=== PATIENT | female | born 1995 | race Hispanic/Latino ===

== ENCOUNTER 2018-02-04 21:57 | Emergency (ER) | payer SELFPAY ==
[2018-02-04] MEDS ORDERED: ACETAMINOPHEN 500 MG TAB ONE (22:45)
[2018-02-04 22:53] LABS: Urine Blood NEGATIVE (NEG); Urine Glucose NEGATIVE (NEG); Urine Protein NEGATIVE (NEG); Urine Specific Gravity 1.025 (1.005-1.030)
--- NOTE | 2018-02-05 00:21 | EDPHYS ---
Physician Documentation [facility] Name: Mireille Mills Age: 22 yrs Sex: Female : 1995 Arrival Date: 02/04/2018 Time: 22:02 Bed 18 Private MD: ED Physician Vernon Morris HPI: 02/04 22:38 This 22 yrs old Female presents to ER via Ambulatory with complaints of Flu jr8 Symptoms, Fever. 22:38 Patient presents with flu like symptoms and pain to right lateral chest wall. Denies jr8 trauma. Has been treating herself with over the counter medicines thus far. Symptoms started last night . Severity of symptoms: At their worst the symptoms were moderate in the emergency department the symptoms are unchanged. The patient has not experienced similar symptoms in the past. The patient has not recently seen a physician. 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 - Social history:: Smoking status: Patient/guardian denies using tobacco. - Ebola Screening: : No symptoms or risks identified at this time. ROS: 22:38 Eyes: Negative for injury, pain, redness, and discharge, Neck: Negative for injury, jr8 pain, and swelling, Abdomen/GI: Negative for abdominal pain, nausea, vomiting, diarrhea, and constipation, Back: Negative for injury and pain, MS/Extremity: Negative for injury and deformity, Skin: Negative for injury, rash, and discoloration. 22:38 Constitutional: Positive for body aches, chills, fever. 22:38 ENT: Positive for rhinorrhea, sinus congestion, sore throat. 22:38 Cardiovascular: Positive for chest pain, with cough, with movement, of the right lateral anterior chest. 22:38 Respiratory: Positive for cough, Negative for dyspnea on exertion, pleurisy, shortness of breath, sputum production, wheezing. 22:38 Neuro: Positive for headache. Exam: 22:38 Constitutional: This is a well developed, well nourished patient who is awake, alert, jr8 and in no acute distress. Head/Face: Normocephalic, atraumatic. Eyes: Pupils equal round and reactive to light, extra-ocular motions intact. Lids and lashes normal. Conjunctiva and sclera are non-icteric and not injected. Cornea within normal limits. Periorbital areas with no swelling, redness, or edema. ENT: Nares patent. No nasal discharge, no septal abnormalities noted. Tympanic membranes are normal and external auditory canals are clear. Oropharynx with no redness, swelling, or masses, exudates, or evidence of obstruction, uvula midline. Mucous membranes moist. Neck: Trachea midline, no thyromegaly or masses palpated, and no cervical lymphadenopathy. Supple, full range of motion without nuchal rigidity, or vertebral point tenderness. No Meningismus. Cardiovascular: Regular rate and rhythm with a normal S1 and S2. No gallops, murmurs, or rubs. Normal PMI, no JVD. No pulse deficits. Respiratory: Lungs have equal breath sounds bilaterally, clear to auscultation and percussion. No rales, rhonchi or wheezes noted. No increased work of breathing, no retractions or nasal flaring. Abdomen/GI: Soft, non-tender, with normal bowel sounds. No distension or tympany. No guarding or rebound. No evidence of tenderness throughout. Back: No spinal tenderness. No costovertebral tenderness. Full range of motion. Skin: Warm, dry with normal turgor. Normal color with no rashes, no lesions, and no evidence of cellulitis. MS/ Extremity: Pulses equal, no cyanosis. Neurovascular intact. Full, normal range of motion. Neuro: Awake and alert, GCS 15, oriented to person, place, time, and situation. Cranial nerves II-XII grossly intact. Motor strength 5/5 in all extremities. Sensory grossly intact. Cerebellar exam normal. Normal gait. 22:38 Chest/axilla: Inspection: normal, Palpation: tenderness, that is moderate, of the right lateral anterior chest, that totally reproduces the patient's complaints, Axilla: are normal. Vital Signs: 22:22 BP 110 / 71; Pulse 94; Resp 16; Temp 100.4(O); Pulse Ox 98% on R/A; Weight 65.77 kg; lp1 02/05 00:30 BP 105 / 61; Pulse 86; Temp 98.6(O); Pulse Ox 98% on R/A; jb4 MDM: 02/04 22:07 Patient medically screened. [facility] 02/05 00:19 Data reviewed: vital signs, nurses notes, lab test result(s), radiologic studies, plain jr films, and as a result, I will discharge patient. Data interpreted: Pulse oximetry: on room air is 98 %. Interpretation: normal. Counseling: I had a detailed discussion with the patient and/or guardian regarding: the historical points, exam findings, and any diagnostic results supporting the discharge/admit diagnosis, lab results, radiology results, the need for outpatient follow up, a family practitioner, to return to the emergency department if symptoms worsen or persist or if there are any questions or concerns that arise at home. 02/04 22:30 Order name: Influenza Screen (a \T\ B) [facility] 02/04 22:30 Order name: Strep [facility] 02/04 22:31 Order name: Influenza Screen (A ; Complete Time: 23:09 EDLA 02/04 22:31 Order name: Group A Streptococcus Rapid Sc; Complete Time: 23:09 EDLA 02/04 22:48 Order name: Urine Dipstick--Ancillary (enter results); Complete Time: 22:57 ms 02/04 22:49 Order name: Urine --Ancillary (enter results); Complete Time: 22:57 ms 02/04 22:30 Order name: XRAY Chest Pa And Lat (2 Views) [facility] 02/04 22:30 Order name: Urine Test (obtain specimen); Complete Time: 22:48 [facility] 02/04 22:30 Order name: Urine Dipstick-Ancillary (obtain specimen); Complete Time: 22:48 [facility] 02/04 23:06 Order name: Throat Culture EDMS Administered Medications: 02/04 22:35 Drug: Tylenol 1000 mg Route: PO; jb4 02/05 00:40 Follow up: Response: No adverse reaction jb4 Disposition: 00:50 Co-signature as Attending Physician, Vernon Morris MD. pkl Disposition: 02/05/18 00:20 Discharged to Home. Impression: Viral infection, unspecified, Other chest pain - Lateral chest wall pain. - Condition is Stable. - Discharge Instructions: Chest Wall Pain, Viral Respiratory Infection. - Prescriptions for ketorolac 10 mg Oral tablet - take 1 tablet by ORAL route every 6 hours not to exceed 40 mg in 24hrs; 16 tablet. - Medication Reconciliation Form, Thank You Letter, Antibiotic Education, Prescription Opioid Use form. - Follow up: Private Physician; When: 2 - 3 days; Reason: Recheck today's complaints, Continuance of care, Re-evaluation by your physician. - Problem is new. - Symptoms have improved. Signatures: Dispatcher [employer] EDMS Vernon Morris MD MD pkl Katy Chung RN RN lp1 Rambo Harp PA PA jr8 Leo Elizabeth, RN RN jb4 Corrections: (The following items were deleted from the chart) 00:40 00:20 02/05/2018 00:20 Discharged to Home. Impression: Viral infection, unspecified; jb4 Other chest pain - Lateral chest wall pain. Condition is Stable. Forms are Medication Reconciliation Form, Thank You Letter, Antibiotic Education, Prescription Opioid Use. Follow up: Private Physician; When: 2 - 3 days; Reason: Recheck today's complaints, Continuance of care, Re-evaluation by your physician. Problem is new. Symptoms have improved. jr8
--- NOTE | 2018-02-05 00:21 | ER ---
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 Transition of care: patient was not received from another setting of care. Onset of symptoms was February 04, 2018. Risk Assessment: Do you want to hurt yourself or someone else? Patient reports no desire to harm self or others. Initial Sepsis Screen: Does the patient meet any 2 criteria? No. Patient's initial sepsis screen is negative. Does the patient have a suspected source of infection? No. Patient's initial sepsis screen is negative. Care prior to arrival: None. 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 - Social history:: Smoking status: Patient/guardian denies using tobacco. - Ebola Screening: : No symptoms or risks identified at this time. Screenin:25 Abuse screen: Denies threats or abuse. Denies injuries from another. Nutritional lp1 screening: No deficits noted. Tuberculosis screening: No symptoms or risk factors identified. Fall Risk None identified. Assessment: 22:24 General: Appears in no apparent distress. Behavior is appropriate for age, Reports lp1 fever for feeling ill for. Pain: Complains of pain in right lateral posterior chest and right lateral anterior chest Pain currently is 6 out of 10 on a pain scale. Quality of pain is described as sharp. Neuro: Level of Consciousness is awake, alert, obeys commands. Cardiovascular: Patient's skin is warm and dry. Respiratory: Reports cough that is Respiratory effort is even, unlabored. GI: No signs and/or symptoms were reported involving the gastrointestinal system. : No signs and/or symptoms were reported regarding the genitourinary system. EENT: No signs and/or symptoms were reported regarding the EENT system. Derm: Skin is pink, warm \T\ dry. Musculoskeletal: No signs and/or symptoms reported regarding the musculoskeletal system. 02/05 00:00 Reassessment: Patient appears in no apparent distress at this time. Patient and/or jb4 family updated on plan of care and expected duration. Pain level reassessed. Patient is alert, oriented x 3, equal unlabored respirations, skin warm/dry/pink. Patient states feeling better. Vital Signs: 02/04 22:22 BP 110 / 71; Pulse 94; Resp 16; Temp 100.4(O); Pulse Ox 98% on R/A; Weight 65.77 kg; lp1 02/05 00:30 BP 105 / 61; Pulse 86; Temp 98.6(O); Pulse Ox 98% on R/A; jb4 ED Course: 02/04 22:02 Patient arrived in ED. es 22:07 Rambo Harp PA is PHCP. jr8 22:07 Vernon Morris MD is Attending Physician. jr8 22:20 Katy Chung, DIETER is Primary Nurse. lp1 22:21 Triage completed. lp1 22:22 Arm band placed on left wrist. lp1 22:25 Patient has correct armband on for positive identification. lp1 22:35 Flu and/or RSV swab sent to lab. Strep swab sent to lab. lp1 22:43 XRAY Chest Pa And Lat (2 Views) In Process Unspecified. EDMS 12 00:39 No provider procedures requiring assistance completed. Patient did not have IV access jb4 during this emergency room visit. Administered Medications: 02/04 22:35 Drug: Tylenol 1000 mg Route: PO; jb4 02/05 00:40 Follow up: Response: No adverse reaction jb4 Outcome: 00:20 Discharge ordered by . jr8 00:39 Discharged to home ambulatory, with family. jb4 00:39 Condition: stable 00:39 Discharge instructions given to patient, family, Instructed on discharge instructions, follow up and referral plans. medication usage, Demonstrated understanding of instructions, follow-up care, medications, Prescriptions given X 1. 00:40 Patient left the ED. jb4 Signatures: Dispatcher [employer] Susan Pinto Laura, RN RN lp1 Rambo Harp PA PA jr8 Leo Elizabeth RN RN jb4 Corrections: (The following items were deleted from the chart) 02/04 22:23 22:21 Presenting complaint: Patient states: Cough, congestion, fever, right sided rib lp1 pain that began 2 days ago; States feeling general body aches, pressure behind eyes; Denies any nausea, vomiting, diarrhea lp1 02/05 00:37 00:00 BP 105 / 61; Pulse 86bpm; Pulse Ox 98% RA; Temp 98.6F Oral; jb4 jb4
[2018-02-05 01:19] VITALS: O2SAT 98
[2018-02-05 01:20] VITALS: BP 105/61; TEMP 98.6
--- NOTE | 2018-02-05 11:32 | RAD REPORT ---
EXAM DESCRIPTION: RAD - Chest Pa And Lat (2 Views) - 02/04/2018 10:45 pm CLINICAL HISTORY: Chest pain;Fever Chest pain. COMPARISON: No comparisons FINDINGS: The lungs are clear. The heart is normal in size. No displaced fractures. IMPRESSION: No acute or concerning finding suspected.
== END 2018-02-05 00:40 | disposition home or self-care (01) ==
LOC: ER 21:57
DX: B34.9 Viral infection, unspecified (principal); R07.89 Other chest pain
CPT/HCPCS: 71046; 81003; 81025; 87070; 87081; 87804; 99284

== ENCOUNTER 2020-01-06 01:46 | Inpatient (IN) | payer SELFPAY ==
[2020-01-06] MEDS ORDERED: PIPER/TAZO/NS 3.375gm 3.375 GM/100 ML BAG IVPB ONE (02:28)
[2020-01-06 02:30] VITALS: BMI 28.5
[2020-01-06] MEDS ORDERED: NA CHLORIDE 0.9% 1,000 ML IV SCH ×2 (03:00→09:00)
[2020-01-06] MEDS ORDERED: PIPER/TAZO/NS 3.375gm 3.375 GM/100 ML BAG ONE (03:42)
[2020-01-06] MEDS ORDERED: PIPER/TAZO/NS 3.375gm 3.375 GM/100 ML BAG IVPB SCH ×2 (06:00→09:00)
--- NOTE | 2020-01-06 11:15 | HP ---
Date of Admission: 01/06/2020 Reason For Service: Acute appendicitis. History Of Present Illness: This is the case of a 24-year-old patient, who comes to us with periumbi lical right lower quadrant tenderness associated with nausea for about 1 day duration. Patient went to a nearest outpatient ER in [place] across the [address], diagnosed with acute appendicitis. Called me this morning for the possibility of transfer for surgical intervention. Patient was transferred to [facility]. She denies any dysuria, hematuria, hematochezia, melena. Denies any recent travelin g out of the country, denies any family member sick at home. Obviously, she ate a little bit more th an usual due to Thanks Giving weekend. She did not recall anything like this before. Past Medical History: None. Allergies: NONE. Past Surgical History: Surgeries none. Social History: She does smoke. She does not drink alcohol. Family History: Noncontributory. Review of Systems: No hematochezia no melena. See H and P. 10 points otherwise unremarkable. Physical Examination: General: Patient is awake, alert. HEENT: Pupils anicteric. Neck: Supple. Chest: Clear. Abdomen: Right lower quadrant tenderness, periumbilical tenderness with guarding and rebound. Breasts: Deferred. Pelvic: Deferred. Rectal: Deferred. Extremities: Good capillary refill. Neurologic: Cranial nerves 2 through 12 grossly within normal limits. Imaging: CAT scan and WBC count were obtained at the [place] institution with a leukocytosis and also a CAT scan positive for acute appendicitis. Assessment: 24-year-old patient with acute appendicitis. Laparoscopic, possible open appendectomy f ully explained which include, but not limited to infection, bleeding, damage to adjacent structures, anesthetic complications, negative appendix, VA, even . She also understands this may not relie ve the symptoms she might need more than one surgical intervention. The OR was called emergently. AZRA/[place] Voice ID: [id number]
[2020-01-06] MEDS ORDERED: SUCCINYLCHOLINE 20 MG/ML (10 ML) IV ONE (11:59)
[2020-01-06] MEDS ORDERED: propofoL 200 MG/20 ML VIAL IV ONE (12:03)
[2020-01-06] MEDS ORDERED: ROCURONIUM 50 MG/5 ML VIAL IV ONE (12:04)
[2020-01-06] MEDS ORDERED: FENTANYL CITR 100 MCG/2 ML ONE ×2 (12:04→13:10)
[2020-01-06] MEDS ORDERED: MIDAZOLAM HCL 2 MG/2 ML INJ ONE ×2 (12:04→13:01)
[2020-01-06] MEDS ORDERED: NEOSTIGMINE 1 MG/ML -5 ML ONE (12:34)
[2020-01-06] MEDS ORDERED: MORPHINE 2 MG/ML SYR IV PRN (12:35)
[2020-01-06] MEDS ORDERED: GLYCOPYRROLATE 0.2 MG/ML SYR ONE ×2 (12:35)
[2020-01-06] MEDS ORDERED: HYDROCODONE/APAP 5/325 MG TAB PO PRN (12:35)
[2020-01-06] MEDS ORDERED: ONDANSETRON 4 MG/2 ML VIAL ONE ×2 (12:36→13:01)
[2020-01-06] MEDS ORDERED: dexAMETHasone 4 MG/ML VIAL ONE (12:37)
[2020-01-06] MEDS ORDERED: Ringers Lactate 1,000 ML IV ONE (13:10)
[2020-01-06] MEDS ORDERED: KETOROLAC 30 MG/ML INJ ONE (13:10)
--- NOTE | 2020-01-06 13:10 | P.BOP ---
Preoperative diagnosis: acute appendicitis Postoperative diagnosis: same Primary procedure: Emergent Laparoscopic appendectomy Estimated blood loss: <10cc Specimen: nahomi Findings: acute appendicitis Anesthesia: General Complications: None Transferred to: Recovery Room Condition: Good
[2020-01-06 13:15] VITALS: O2SAT 96
--- NOTE | 2020-01-06 13:42 | OP ---
Date of Procedure: 01/06/2020 Surgeon: Alberto Encarnacion MD Preoperative Diagnosis: Acute appendicitis, acute abdominal pain. Postoperative Diagnosis: Acute appendicitis, acute abdominal pain. Procedure: Laparoscopic appendectomy. Anesthesia: General plus local. Indications: This is the case of a 24-year-old patient with acute appendicitis. The benefits, alter natives, and risks of emergent laparoscopic, possible open appendectomy were fully explained, which i ncluded, but not limited to infection, bleeding, damage to adjacent structures, anesthesia complicati ons, PR and even . She also understands this may not relieve the symptoms. She might need more than one surgical intervention. She understood, signed a consent. Procedure In Detail: The patient was brought to the operating room and placed in supine position. A nesthesia was done without complication. Abdominal area was prepped and draped in a sterile fashion. Marcaine 0.5% was injected for local anesthetic followed by sharp incision of skin in the infraumbi lical region. Incision was carried down to fascia, which was opened under direct vision. Peritoneum was encountered, opened under direct vision. Vicryl #1 was placed inside the fascia. Mauricio trocar was carefully introduced. Pneumoperitoneum was obtained. I placed 2 more trocars, 5 mm each one of them, one in the suprapubic area, another one in the left lower quadrant using same technique which consisted of local anesthetic, sharp incision of the skin and introduction of the trocars under direc t vision. This allowed me to put a grasper in the mesoappendix. I noticed the base of appendix to b e spared from the rest of the appendix, which looked inflamed and erythematous. A window was created in the base of appendix, transected with Endo TODD 45 mm 3.5 and the mesoappendix with Endo-TODD 45 mm 2.5. Further hemostasis was obtained with the help of hemoclips 5 mm. Area was irrigated. No bile leak. No bleeding. At that moment, I proceeded to remove the appendix through the EndoCatch throug h the umbilical incision. The area was once again irrigated and suctioned. No bleeding. At that mo ment, I proceeded to remove the trocars under direct vision. Deflated pneumoperitoneum. Closed the fascia with #1 Vicryl. Irrigated the subcutaneous tissue and closed that with 3-0 chromic and skin w ith jesse. Sponge count and instrument counts were correct. The patient tolerated the procedure w ell. The patient was sent to recovery in stable condition. AZRA/[place] Voice ID: [id number] Report ID: [id number]
--- NOTE | 2020-01-06 13:42 | DS ---
Diagnosis: Acute appendicitis. Procedure: Laparoscopic appendectomy. Disposition: Home. Activity: As tolerated, no heavy lifting. Plan: Follow up in my office in 1 week. Call for appointment at [phone]. She will be going home i f she tolerates diet. Otherwise, she will be here until tomorrow. ELIA Voice ID: [id number] Report ID: [id number]
[2020-01-06 16:49] VITALS: BP 100/58; TEMP 98.6
== END 2020-01-06 18:45 | disposition home or self-care (01) | DRG 343 ==
LOC: 2ND 02:06
PROVIDERS: ADMIT Surgery; ATTEND Surgery
PROC: 0DTJ4ZZ Resection of Appendix, Percutaneous Endoscopic Approach (ICD-10-PCS; principal; 2020-01-06 12:00)
DX: K35.80 Unspecified acute appendicitis (principal); Z20.828 Contact with and (suspected) exposure to other viral communicable diseases
CPT/HCPCS: 88304; 94010; J0330; J1100; J2250; J2405; J2543; J2704; J2710; J3010; J7030; J7120; U0003